=== PATIENT | female | born 1995 | race American Indian/Alaskan Native ===

== ENCOUNTER 2016-09-28 09:00 | Inpatient (IN) | payer MEDICAID ==
[2016-09-28] MEDS ORDERED: POLYCILLIN/NS 2 GM/100 ML 2 GM/100 ML BAG IV ONE ×2 (09:36→14:12)
[2016-09-28] MEDS ORDERED: MINERAL OIL PO PRN (09:36)
[2016-09-28] MEDS ORDERED: BRETHINE IVP PRN (09:36)
[2016-09-28] MEDS ORDERED: SUBLIMAZE IV PRN (09:36)
[2016-09-28] MEDS ORDERED: BRETHINE SUB-Q PRN (09:36)
[2016-09-28] MEDS ORDERED: STADOL IV PRN (09:36)
[2016-09-28] MEDS ORDERED: XYLOCAINE 2% INFILTRATI ONE (09:36)
[2016-09-28] MEDS ORDERED: ePHEDrine SULFATE IV PRN (09:36)
--- NOTE | 2016-09-28 09:40 | History and Physical Report ---
History of Present Illness Date of examination: 09/28/16 Date of admission: 09/28/16 09:00 History of present illness: 21 yo LMP EDC 09/26/16@ 40.2 weeks presented for second initiation of induction of labor. First trimester entry into care at 10 weeks gestation. course complicated by morbid obesity with BMI of 42, early GCt 117, NL second trimester screen of 125. 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 She experienced hypotensive epidsodes with spont resolution. Limited anatomy scan with [facility] referral and comang't of care secondary to maternal obesity. She is GBS positive. [facility] recommenced induction of labor 38-39 weeks, however she had an unfavorable cervix and after 3 days of induction and progression only to 2 cm, patient left hospital AMA. She was seen in office the following day and discussed in detail plan of care to reattempt induction closer to [facility]. 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, herpes Family/Genetic History: none Social history: no significant social history, single - Obstetrical History Expected Date of Delivery: 09/26/16 Actual Gestation: 40 Week(s) 2 Day(s) : 2 Para: 0 Hx # Term Pregnancies: 0 Number of Pregnancies: 0 Spontaneous Abortions: 1 Induced : 0 Number of Living Children: 0 Medications and Allergies Allergies Allergy/AdvReac Type Severity Reaction Status Date / Time peanut AdvReac Itching Verified 02/19/16 10:58 walnut AdvReac Itching Verified 02/19/16 10:58 Home Medications Medication Instructions Recorded Confirmed Last Taken Type Vit No.130/Iron/FA 1 each PO QDAY #30 tablet 01/31/16 09/16/16 Unknown Rx [ Tablet] Acetaminophen [Tylenol] 1,000 mg PO Q8HR #30 tablet 02/04/16 09/16/16 Unknown Rx Review of Systems All systems: negative Gastrointestinal: abdominal pain Genitourinary: contractions, no vaginal bleeding, no vaginal discharge, no leakage of fluid, no genital sores - Physical Exam Breasts: Positive: deferred Lungs: Positive: Normal air movement Abdomen: Positive: normal appearance Genitourinary (Female): Positive: normal external genitalia, normal perenium. Negative: perineal/vulvar lesions Vagina: Positive: normal moisture, other Cervix: Positive: other (folliculitis with multiple lesions on mons pubis) Extremities: Positive: normal - Obstetrical FHR: category 1 Uterine Contraction Monitor Mode: External Cervical Dilatation: 2.5 Cervical Effacement Percentage: 50 station: -3 Uterine Contraction Frequency (min): 0 Uterine Contraction Pattern: Absent Uterine Tone Measurement Phase: Resting Uterine Contraction Intensity: Strong/Firm Results Result Diagrams: 09/28/16 09:36 All other labs normal. Assessment and Plan A: IUP at 40.2 weeks gestation Category 2 tracing BPP 8/8 +GBS P: Abx for GBS AROM-clear Pitocin induction
[2016-09-28] MEDS ORDERED: PITOCin/NS 30 UNIT/500ML 30 UNITS/500 ML BAG IV SCH (10:00)
[2016-09-28] MEDS ORDERED: PITOCin/NS 20 UNIT/1000ML DRIP 20 UNITS/1,000 ML BAG IV SCH ×2 (10:00→18:00)
[2016-09-28 12:42] LABS: Hematocrit 41.5 % (30.3-42.9); Hemoglobin 13.4 gm/dl (10.1-14.3); Mean Corpuscular HGB Conc 32 % (30-34); Mean Corpuscular Hemoglobin 28 pg (28-32); Mean Corpuscular Volume 87 fl (79-97); Platelet Count 153 K/mm3 (140-440); Red Blood Count 4.79 M/mm3 (3.65-5.03); Red Cell Distribution Width 16.1 % (13.2-15.2); White Blood Count 13.1 K/mm3 (4.5-11.0)
[2016-09-28] MEDS ORDERED: POLYCILLIN/NS 1 GM/50 ML 1 GM/50 ML BAG IV SCH (13:39)
--- NOTE | 2016-09-28 14:27 | Progress Note ---
Assessment and Plan O: BPP 09/26 A: IUP @ 40.2 weeks gestation Induction of labor Category 2 tracing with reassuring BPP +GBS P: Active Shailesh't Induction GBS treatment AROM-clear fluid Subjective - Subjective Date of service: 09/28/16 Interval history: 21 yo LMP EDC 09/26/16@ 40.2weeks presented for second initiation of induction of labor. First trimester entry into care at 10 weeks gestation. course complicated by morbid obesity with BMI of 42, early GCt 117, NL second trimester screen of 125. 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 She experienced hypotensive epidsodes with spont resolution. Limited anatomy scan with [facility] referral and comang't of care secondary to maternal obesity. She is GBS positive. [facility] recommenced induction of labor 38-39 weeks, however she had an unfavorable cervix and after 3 days of induction and progression only to 2 cm, patient left hospital AMA. She was seen in office the following day and discussed in detail plan of care to reattempt induction closer to [facility]. Patient reports: movement normal, no new complaints, no vaginal bleeding, no contractions Objective - Vital Signs Vital Signs: Vital Signs - 12hr 09/28/16 09/28/16 09/28/16 10:32 10:47 11:02 Pulse Rate 90 90 90 Blood Pressure 142/81 127/67 129/81 09/28/16 09/28/16 09/28/16 11:17 11:33 11:47 Pulse Rate 85 94 H 102 H Blood Pressure 116/63 127/77 139/90 09/28/16 09/28/16 12:02 12:17 Pulse Rate 91 H 94 H Blood Pressure 142/88 - Exam Breasts: deferred Abdomen: Present: normal appearance FHR: category 2 Uterine Contraction Monitor Mode: External Cervical Dilatation: 2.5 Cervical Effacement Percentage: 40 station: -2 Uterine Contraction Frequency (min): 0 Uterine Contraction Pattern: Absent Uterine Tone Measurement Phase: Resting - Labs Labs: Abnormal Labs 09/28/16 09:36 WBC 13.1 H RDW 16.1 H Laboratory Results - last 24 hr 09/28/16 09/28/16 09:36 12:17 WBC 13.1 H RBC 4.79 Hgb 13.4 Hct 41.5 MCV 87 MCH 28 MCHC 32 RDW 16.1 H Plt Count 153 Blood Type B POSITIVE Antibody Screen Negative
[2016-09-28] MEDS: LACTATED RINGERS 1,000 ML IV SCH ×3 (14:29→19:10)
--- NOTE | 2016-09-28 14:38 | Ultrasound Report ---
LIMITED OB ULTRASOUND: Gestation: Dalal Position: Cephalic MONALISA = 10.5 cm Heart Rate: 135 BPM Estimated gestational age 40 weeks 2 days.
--- NOTE | 2016-09-28 14:40 | Ultrasound Report ---
BIOPHYSICAL PROFILE: 2 - breathing movements 2 - movements 2 - posture and tone 2 - Qualitative amniotic fluid volume 8 - TOTAL SCORE OF POSSIBLE 8 Heart Rate (bpm) 141 Estimated age 40 weeks 2 days.
[2016-09-28] MEDS: PITOCin/NS 30 UNIT/500ML 30 UNITS/500 ML BAG IV SCH ×4 (15:09→16:57)
--- NOTE | 2016-09-28 17:29 | Procedure Note ---
OB Delivery Note - Delivery Date of Delivery: 09/28/16 (7-7oz male @ 1606) Surgeon: RAÚL GARCIA Estimated blood loss: 500cc - Vaginal Delivery presentation: vertex Delivery position: OA Intrapartum events: none Delivery augmentation: rupture of membranes, pitocin Delivery monitor: external FHT, external uterine Route of delivery: Delivery placenta: spontaneous Delivery cord: 3 umbilical vessels Delivery laceration: 1st degree (vaginal laceration) Delivery repair: vicryl (3.[address]) Anesthesia: epidural - Infant A at 1 minute: 8 at 5 minutes: 9 Infant Gender: Male (Pushed for of viable male infant. Bulb suctioned and placed skin to skin. Spont. placenta. Fundus messaged firm, bleeding heavy, Pitocin infusing. Repair of first degree laceration. Bleeding continued, fundus messaged. Bimanuel exam done and multiple clots expressed. Bleeding scant. Positive GBs with adequate treatment.)
[2016-09-28] MEDS ORDERED: BICITRA PO ONE (17:45)
[2016-09-28] MEDS ORDERED: REGLAN IV ONE (17:45)
[2016-09-28] MEDS ORDERED: PEPCID IV ONE (17:45)
--- NOTE | 2016-09-28 17:51 | Progress Note ---
<RAÚL GARCIA - Last Filed: 09/28/16 17:52> Assessment and Plan A: IUP at 40.2 weeks gestation +GBS Category 2 tracing, rep late decels with minimal variability Remote from delivery P: at Recheck no cervical change Patient consulted and consented for C/S Subjective - Subjective Date of service: 09/28/16 Interval history: 21 yo LMP EDC 09/26/16@ 40.2 weeks presented for second initiation of induction of labor. First trimester entry into care at 10 weeks gestation. course complicated by morbid obesity with BMI of 42, early GCt 117, NL second trimester screen of 125. 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 She experienced hypotensive epidsodes with spont resolution. Limited anatomy scan with [facility] referral and comang't of care secondary to maternal obesity. She is GBS positive. [facility] recommenced induction of labor 38-39 weeks, however she had an unfavorable cervix and after 3 days of induction and progression only to 2 cm, patient left hospital AMA. She was seen in office the following day and discussed in detail plan of care to reattempt induction closer to [facility]. Patient reports: loss of fluid (clear), movement normal, contractions, no new complaints, no vaginal bleeding Objective - Vital Signs Vital Signs: Vital Signs - 12hr 09/28/16 09/28/16 09/28/16 10:32 10:47 11:02 Temperature Pulse Rate 90 90 90 Respiratory Rate Blood Pressure 142/81 127/67 129/81 09/28/16 09/28/16 09/28/16 11:17 11:33 11:47 Temperature Pulse Rate 85 94 H 102 H Respiratory Rate Blood Pressure 116/63 127/77 139/90 09/28/16 09/28/16 09/28/16 12:02 12:17 14:22 Temperature 98.5 F Pulse Rate 91 H 94 H 85 Respiratory 16 Rate Blood Pressure 142/88 131/74 - Exam Breasts: deferred Abdomen: Present: normal appearance FHR: category 2 FHR comments: Rep. late decels Uterine Contraction Monitor Mode: External Cervical Dilatation: 2.5 Cervical Effacement Percentage: 50 station: -3 Uterine Contraction Frequency (min): 2-4 Uterine Contraction Duration: 50 Uterine Contraction Pattern: Regular Uterine Tone Measurement Phase: Resting Uterine Contraction Intensity: Moderate - Labs Labs: Abnormal Labs 09/28/16 09:36 WBC 13.1 H RDW 16.1 H Laboratory Results - last 24 hr 09/28/16 09/28/16 09:36 12:17 WBC 13.1 H RBC 4.79 Hgb 13.4 Hct 41.5 MCV 87 MCH 28 MCHC 32 RDW 16.1 H Plt Count 153 Blood Type B POSITIVE Antibody Screen Negative <NARENDRA LIMON - Last Filed: 09/28/16 17:56> Objective - Vital Signs Vital Signs: Vital Signs - 12hr 09/28/16 09/28/16 09/28/16 10:32 10:47 11:02 Temperature Pulse Rate 90 90 90 Respiratory Rate Blood Pressure 142/81 127/67 129/81 09/28/16 09/28/16 09/28/16 11:17 11:33 11:47 Temperature Pulse Rate 85 94 H 102 H Respiratory Rate Blood Pressure 116/63 127/77 139/90 09/28/16 09/28/16 09/28/16 12:02 12:17 14:22 Temperature 98.5 F Pulse Rate 91 H 94 H 85 Respiratory 16 Rate Blood Pressure 142/88 131/74 - Labs Labs: Abnormal Labs 09/28/16 09:36 WBC 13.1 H RDW 16.1 H Laboratory Results - last 24 hr 09/28/16 09/28/16 09:36 12:17 WBC 13.1 H RBC 4.79 Hgb 13.4 Hct 41.5 MCV 87 MCH 28 MCHC 32 RDW 16.1 H Plt Count 153 Blood Type B POSITIVE Antibody Screen Negative
[2016-09-28] MEDS ORDERED: LACTATED RINGERS 1,000 ML IV SCH (18:00)
[2016-09-28] MEDS ORDERED: ANCEF/STERILE WATER 2 GM/20 ML 2 GM/20 ML SYRINGE IV ONE (20:52)
[2016-09-28] MEDS ORDERED: TORADOL ONE (20:54)
[2016-09-28] MEDS ORDERED: NEO SYNEPHRINE ONE (20:57)
--- NOTE | 2016-09-28 21:59 | Operative Report ---
Operative Report Operative Report: Date of procedure: September 28, 2016 Preoperative diagnosis: 1) IUP at 40w2d 2) Nonreassuring heart tones 3) Intolerance to Labor 4) Morbid Obesity Postoperative diagnosis: Same Procedure: Primary low transverse section Surgeon: Merry Corrales M.D. Customer Support Agent: Dominique Angela M.D. Anesthesia: Spinal-epidural Findings: 1) Viable male , Apgars 8 and 9, weight 3021g, (6 lb 10.5 oz). Occiput posterior. 2) Normal-appearing uterus ovaries and tubes Estimated blood loss: 800 mL Drains: Brito to gravity Complications:None. Counts correct x 3. Disposition: Stable to PACU Indication for procedure: Pt is a 21 year old -Luxembourger female at 40 weeks 2 days who initially presented for induction of labor secondary to morbid obesity. The patient progressed to 2 cm dilated and the heart tracing began have repetitive late decels remote from delivery. The decision was made to proceed with primary section. Operation in detail: After the risks, benefits, alternatives and complications were explained to the patient she gave informed consent for the procedure. She was subsequently taken to the operating room where spinal-epidural anesthesia was noted to be adequate. She was subsequently placed in the dorsal supine position with leftward tilt and prepped and draped in a normal sterile fashion. heart tones were noted to be in the 115s prior to incision. A timeout was performed. A Pfannenstiel skin incision was made with the knife and carried down to the layer of the fascia with the Bovie. The fascia was incised in the midline and the fascial incision was extended bilaterally with the Bovie. Attention was then turned to the superior aspect of the incision which was grasped with two Kochers, tented up, and dissected off the rectus muscles. Attention was then turned to the inferior aspect of the incision which was grasped with two Kochers , tented up and dissected off the rectus muscles. The rectus muscles were then in the midline. The peritoneum was then entered bluntly. The peritoneal incision was extended with good visualization of the bladder. The peritoneal incision was then stretched. An Khris self-retaining retractor was placed for visualization. The bladder blade was placed. The vesicouterine peritoneum was grasped with smooth pickups and incised with Metzenbaum scissors. Metzenbaum scissors were used to extend the incision bilaterally. The bladder flap was then created digitally and the bladder blade was replaced. A transverse incision was made in the lower uterine segment with a knife and extended bilaterally with the bandage scissors. The head was delivered without difficulty followed by shoulders and body. was bulb suctioned at delivery. The cord was clamped and cut and the was handed to NICU staff in attendance. Cord blood was collected. The placenta was then delivered manually. The uterus was exteriorized and then cleared of all clots and debris. The hysterotomy was then reapproximated with 0 Vicryl in a running locked fashion. A second layer of the same suture was used in imbricating fashion. A figure of eight of 2-0 Vicryl was used on the left side of the incision to obtain hemostasis. The hysterotomy was inspected and hemostasis was noted. The Khris self-retaining retractor was removed. The gutters were irrigated and cleared of all clots and debris. The hysterotomy was again inspected and noted to be hemostatic. Surgicel was placed over the hysterotomy. Interceed was placed on the anterior surface of the uterus. The peritoneum was then reapproximated with 2-0 Vicryl in a running fashion. The rectus muscles were then covered with Surgicel. The fascia was reapproximated with 0 Vicryl in a running fashion. The skin was reapproximated with eulogio. The incision was then covered with telfa and a pressure dressing. The procedure was then ended. The patient tolerated the procedure well and was taken to the PACU in stable condition. All instrument, lap, and needle counts were correct 3.
--- NOTE | 2016-09-28 21:59 | Procedure Note ---
OB Delivery Note - Delivery Date of Delivery: 09/28/16 Surgeon: NARENDRA LIMON Estimated blood loss: other (800 mL) - Section Preop diagnosis: nonreassuring FHR tracing Postop diagnosis: same section procedure: section, primary low transverse Disposition: PACU Complications: uterine atony Narrative: Please see operative note. - A at 1 minute: 8 at 5 minutes: 9 Gender: Male (3021g (6lb 10.5 oz))
[2016-09-28] MEDS ORDERED: DILAUDID IV PRN ×2 (22:07)
[2016-09-28] MEDS ORDERED: ZOFRAN IV PRN (22:07)
[2016-09-28] MEDS ORDERED: PHENERGAN PO PRN (22:07)
[2016-09-28] MEDS ORDERED: PHENERGAN PR PRN (22:07)
[2016-09-28] MEDS ORDERED: NARCAN 0.4 MG/1 ML IV PRN (22:07)
--- NOTE | 2016-09-28 22:07 | Post Anesthesia Evaluation ---
- Post Anesthesia Evaluation Patient Participated: Yes Airway Patent: Yes Stable Respiratory Function: Yes Nausea/Vomiting: No Temp > 96.8F: Yes Pain Manageable: Yes Adequeate Hydration: Yes Anesthesia Complications: No
--- NOTE | 2016-09-28 22:07 | Anesthesia Consultation ---
Anesthesia Consult and Med Hx Date of service: 09/28/16 - Airway Anesthetic Teeth Evaluation: Good ROM Head & Neck: Adequate Mental/Hyoid Distance: Adequate Mallampati Class: Class II Intubation Access Assessment: Good - Pulmonary Exam CTA: Yes - Cardiac Exam Cardiac Exam: No Murmur - Pre-Operative Health Status ASA Pre-Surgery Classification: ASA2 Proposed Anesthetic Plan: Spinal - Pulmonary Hx Asthma: No COPD: No Hx Pneumonia: No - Cardiovascular System Hx Hypertension: No - Central Nervous System Hx Seizures: No Hx Psychiatric Problems: No - Endocrine Hx Renal Disease: No Hx End Stage Renal Disease: No Hx Hypothyroidism: No Hx Hyperthyroidism: No - Hematic Hx Anemia: No Hx Sickle Cell Disease: No - Other Systems Hx Alcohol Use: No
[2016-09-28] MEDS ORDERED: SODIUM CHLORIDE FLUSH SYRINGE 10 ML IV PRN (23:00)
[2016-09-28] MEDS ORDERED: fentaNYL-BUPIV 2 MCG/ML-0.125% 200 MCG/100 ML BAG EPIDURAL SCH (23:00)
[2016-09-29] MEDS ORDERED: TUCKS PAD TP PRN (00:44)
[2016-09-29] MEDS ORDERED: NARCAN 0.4 MG/1 ML IV PRN (00:44)
[2016-09-29] MEDS ORDERED: PITOCin/NS 20 UNIT/1000ML DRIP 20 UNITS/1,000 ML BAG IV SCH (00:44)
[2016-09-29] MEDS ORDERED: SODIUM CHLORIDE FLUSH SYRINGE 10 ML IV PRN (00:44)
[2016-09-29] MEDS ORDERED: MORPHINE IV PRN ×2 (00:44)
[2016-09-29] MEDS ORDERED: LANSINOH TP PRN (00:44)
[2016-09-29] MEDS ORDERED: MYLICON PO PRN (00:44)
[2016-09-29] MEDS ORDERED: TORADOL IV PRN (00:44)
[2016-09-29] MEDS ORDERED: D5LR 1,000 ML IV SCH (00:44)
[2016-09-29] MEDS: MILK OF MAGNESIA PO SCH ×2 (00:53→19:00)
[2016-09-29] MEDS ORDERED: BENADRYL IV PRN (00:54)
[2016-09-29] MEDS: ANCEF/NS 1 GM/50 ML 1 GM/50 ML BAG IV SCH ×2 (04:35→12:21)
--- NOTE | 2016-09-29 11:04 | Progress Note ---
Assessment and Plan A: POD#1 s/p primary section, nausea P: Routine postop care. Hold diet at clears. Follow up postop H/H Subjective - Subjective Date of service: 09/29/16 Principal diagnosis: s/p primary section Interval history: Pt is nauseated but no emesis since last night. She is itching as well. Patient reports: pain well controlled, nauseated, no voiding normally, no flatus , no bowel movement, no ambulating normally : doing well Objective - Vital Signs Latest vital signs: Vital Signs Temp Pulse Resp BP 09/29/16 08:10 98.2 F 80 18 138/78 09/29/16 05:10 97.0 F L 67 18 127/73 09/28/16 23:55 96.8 F L 80 18 116/68 09/28/16 22:35 61 20 112/60 09/28/16 22:21 62 20 121/61 09/28/16 21:55 85 20 120/56 09/28/16 21:52 98.0 F 95 H 20 09/28/16 14:22 98.5 F 85 16 131/74 09/28/16 12:17 94 H 09/28/16 12:02 91 H 142/88 09/28/16 11:47 102 H 139/90 09/28/16 11:33 94 H 127/77 09/28/16 11:17 85 116/63 09/28/16 11:02 90 129/81 Intake and Output 09/28/16 09/29/16 09/29/16 22:59 06:59 14:59 Intake Total 2000 180 240 Output Total 400 800 Balance 1600 -620 240 Intake: IV 2000 Lactated Ringers 1,000 ml 2000 @ 125 mls/hr IV DIRECT TRACY Rx#:[id number] Oral 240 Intake, Free Water 180 Output: Urine 400 800 Indwelling Catheter 800 Void 400 Other: Total, Intake Amount 240 Total, Output Amount 400 600 # Voids Void 1 Estimated Blood Loss 800 - Exam Breasts: Present: deferred Cardiovascular: Present: Regular rate Lungs: Present: Clear to auscultation Abdomen: Present: soft (obese ) Uterus: Present: fundal height at umbilicus Extremities: Present: normal Incision: Present: dressed - Labs Labs: Abnormal lab results 09/28/16 Range/Units 09:36 WBC 13.1 H (4.5-11.0) K/mm3 RDW 16.1 H (13.2-15.2) %
--- NOTE | 2016-09-29 11:17 | Progress Note ---
Subjective Date of service: 09/28/16 Principal diagnosis: s/p primary section Interval history: Patient states she has not ambulated yet. No residual weakness and can move legs with ease. Denies back pain. Complains of itching. Dr. Merry Corrales notified and benadryl ordered. Objective - Constitutional Vitals: Vital Signs - 12hr 09/28/16 09/29/16 09/29/16 23:55 05:10 08:10 Temperature 96.8 F L 97.0 F L 98.2 F Pulse Rate 80 67 80 Respiratory 18 18 18 Rate Blood Pressure 116/68 127/73 138/78 - Labs CBC & Chem 7: 09/28/16 09:36 Labs: Abnormal lab results 09/28/16 Range/Units 09:36 WBC 13.1 H (4.5-11.0) K/mm3 RDW 16.1 H (13.2-15.2) %
[2016-09-29 11:24] LABS: Hematocrit 35.9 % (30.3-42.9); Hemoglobin 11.5 gm/dl (10.1-14.3)
[2016-09-29] MEDS: FEOSOL PO SCH (11:27)
[2016-09-29] MEDS: PRENATAL VITAMIN PO SCH (11:27)
[2016-09-29] MEDS ORDERED: BENADRYL PO PRN (11:30)
[2016-09-29] MEDS: PERCOCET 5/325 PO PRN (21:59)
[2016-09-29] MEDS ORDERED: M-M-R II VACCINE SUB-Q ONE (22:21)
[2016-09-30] MEDS: MOTRIN PO PRN ×4 (00:17→17:44)
[2016-09-30] MEDS: MILK OF MAGNESIA PO SCH ×3 (01:32→19:34)
[2016-09-30] MEDS ORDERED: BOOSTRIX IM ONE (06:00)
[2016-09-30] MEDS: PRENATAL VITAMIN PO SCH (10:25)
[2016-09-30] MEDS: FEOSOL PO SCH (10:25)
--- NOTE | 2016-09-30 15:44 | Progress Note ---
Assessment and Plan A/P POD#2 s/p c/sec ambulating well + flatus bleeding decreased B+ no rhogam indicated male ( call for circumcision f/u in 10 days for staple removal Subjective - Subjective Date of service: 09/30/16 Principal diagnosis: s/p primary section Patient reports: appetite normal, voiding normally, pain well controlled, flatus , ambulating normally [place]: doing well Objective - Vital Signs Latest vital signs: Vital Signs Temp Pulse Resp BP 09/30/16 08:43 97.5 F L 109 H 20 123/70 09/30/16 00:30 98.5 F 103 H 20 118/61 09/30/16 00:17 18 09/29/16 22:10 99.2 F 121 H 20 115/73 09/29/16 21:59 18 09/29/16 16:10 99.1 F 100 H 19 130/89 Intake and Output 09/30/16 09/30/16 09/30/16 06:59 14:59 22:59 Intake Total 480 600 Output Total 800 Balance -320 600 Intake: Oral 600 Intake, Free Water 480 Output: Urine 800 Void 800 Other: Total, Intake Amount 480 Total, Output Amount 800 # Voids Void 2 1 - Exam Breasts: Present: normal Cardiovascular: Present: Regular rate, Normal S1 Lungs: Present: Clear to auscultation, Normal air movement Abdomen: Present: normal appearance, soft. Absent: distention, tenderness, guarding Uterus: Present: normal, firm, fundal height below umbilicus. Absent: bogginess , tenderness Extremities: Present: normal. Absent: tenderness Incision: Present: normal, dry, intact (eulogio present )
--- NOTE | 2016-09-30 15:47 | Discharge Summary ---
Providers - Providers Date of Admission: 09/28/16 09:00 Date of discharge: 10/01/16 Attending physician: NARENDRA LIMON 09/29/16 00:44 Consult to Flour Inspector [CONS] Routine Reason For Exam: Primary care physician: RN OBGYN Hospitalization Reason for admission: induction of labor Delivery: Procedure: section Episiotomy: none Laceration: none Incision: normal, dry, intact, dressed (eulogio present ) Other procedures: none complications: none Discharge diagnosis: IUP at term delivered [place] baby: male Condition at discharge: Good Disposition: DC-01 TO HOME OR SELFCARE Plan - Discharge Medications Prescriptions: Ferrous Sulfate [Feosol 325 MG tab] 325 mg PO BID #60 tablet Ibuprofen [Motrin] 800 mg PO Q8HR PRN #30 tablet PRN Reason: Pain oxyCODONE /ACETAMINOPHEN [Percocet 5/325] 1 tab PO Q6HR PRN #30 tablet PRN Reason: Pain - Provider Discharge Summary Activity: routine, no sex for 6 weeks Diet: routine Instructions: routine Additional instructions: [] Smoking cessation referral if applicable(refer to patient education folder for contact #) [] Refer to [facility]'s [facility] Booklet Call your doctor immediately for: * Fever > 100.5 * Heavy vaginal bleeding ( >1 pad per hour) * Severe persistent headache * Shortness of breath * Reddened, hot, painful area to leg or breast * Drainage or odor from incision. * Keep incision clean and dry at all times and follow doctor's instructions regarding bathing/showering - Follow up plan Follow up: PRIMARY CARE, [Primary Care Provider] - 10 Days Forms: [facility] Discharge Summary, Discharge Signature Page
[2016-09-30] MEDS: PERCOCET 5/325 PO PRN (21:51)
[2016-10-01] MEDS: MOTRIN PO PRN ×2 (00:18→05:50)
[2016-10-01] MEDS: MILK OF MAGNESIA PO SCH ×2 (01:57→05:52)
[2016-10-01 09:18] VITALS: BP 103/54
[2016-10-01] MEDS: FEOSOL PO SCH (10:21)
[2016-10-01] MEDS: PRENATAL VITAMIN PO SCH (10:21)
== END 2016-10-01 14:57 | disposition home or self-care (01) | DRG 765 ==
LOC: LD 09:00 → OB 23:53
PROVIDERS: ADMIT Obstetrics & Gynecology; ATTEND Obstetrics & Gynecology
PROC: 10907ZC Drainage of Amniotic Fluid, Therapeutic from Products of Conception, Via Natural or Artificial Opening (ICD-10-PCS; principal; 2016-09-28)
PROC: 3E033VJ Introduction of Other Hormone into Peripheral Vein, Percutaneous Approach (ICD-10-PCS; principal; 2016-09-28)
PROC: 10D00Z1 Extraction of Products of Conception, Low, Open Approach (ICD-10-PCS; principal; 2016-09-28)
DX: O76 Abnormality in fetal heart rate and rhythm complicating labor and delivery (principal); Z68.43 Body mass index [BMI] 50.0-59.9, adult; Z3A.40 40 weeks gestation of pregnancy; Z37.0 Single live birth; O99.214 Obesity complicating childbirth; E66.01 Morbid (severe) obesity due to excess calories; O99.824 Streptococcus B carrier state complicating childbirth; Z91.010 Allergy to peanuts; Z91.018 Allergy to other foods
CPT/HCPCS: 36415; 76815; 76819; 85014; 85018; 85027; 86592; 86850; 86900; 86901; C1765; J0290; J0595; J0690; J1170; J1200; J1885; J2370; J2405; J2590; J2765; J7120; J7121

== ENCOUNTER 2016-11-10 21:38 | Emergency (ER) | payer MEDICAID ==
[2016-11-10 22:29] LABS: Basophils % (Auto) 0.6 % (0.0-1.8); Eosinophils % (Auto) 3.6 % (0.0-4.3); Hemoglobin 12.4 gm/dl (10.1-14.3); Mean Corpuscular HGB Conc 32 % (30-34); Mean Corpuscular Hemoglobin 28 pg (28-32); Mean Corpuscular Volume 87 fl (79-97); Platelet Count 227 K/mm3 (140-440); Red Blood Count 4.51 M/mm3 (3.65-5.03); Red Cell Distribution Width 15.5 % (13.2-15.2); White Blood Count 8.7 K/mm3 (4.5-11.0)
[2016-11-10 22:37] LABS: Alanine Aminotransferase 17 units/L (7-56); Albumin 4.2 g/dL (3.9-5); Albumin/Globulin Ratio 1.4 %; Alkaline Phosphatase 71 units/L (35-129); Anion Gap 18 mmol/L; BUN/Creatinine Ratio 11.42; Blood Urea Nitrogen 8 mg/dL (7-17); Calcium 9.1 mg/dL (8.4-10.2); Carbon Dioxide 23 mmol/L (22-30); Chloride 104.9 mmol/L (98-107); Glucose 96 mg/dL (65-100); Lipase 43 units/L (13-60); Potassium 3.5 mmol/L (3.6-5.0); Sodium 142 mmol/L (137-145); Total Protein 7.2 g/dL (6.3-8.2)
[2016-11-10 22:38] LABS: Bilirubin,Urine NEG (Negative); Blood,Urine NEG (Negative); Ketones,Urine NEG (Negative); Leukocyte Esterase,Urine SM (Negative); Mucus,Urine FEW /HPF; Nitrite,Urine NEG (Negative)
[2016-11-11] MEDS ORDERED: TORADOL IV ONE (12:14)
--- NOTE | 2016-11-11 12:25 | Emergency Department Report ---
HPI - General Chief Complaint: Abdominal Pain Time Seen by Provider: 11/11/16 11:02 - HPI HPI: The patient is a 21-year-old female who presents for evaluation of abdominal pain. The patient reports bilateral lower quadrant abdominal pain, and left lower back pain, present for the past 6 weeks since receiving a . She states that her pain is 7/10 in severity, aching in quality, exacerbated with movement, and constant for the past 6 weeks. The patient denies fever, chills, night sweats, nausea, vomiting, diarrhea, blood in the stool, dark tarry stool, dysuria, hematuria, flank pain, vaginal discharge, inability to pass flatus. ED Past Medical Hx - Past Medical History Hx Hypertension: No Hx Congestive Heart Failure: No Hx Diabetes: No Hx Deep Vein Thrombosis: No Hx Renal Disease: No Hx Sickle Cell Disease: No Hx Seizures: No Hx Asthma: No Hx COPD: No Hx HIV: No - Surgical History Additional Surgical History: Tonsillectomy and tubes placed in ears as a child - Social History Smoking Status: Never Smoker Substance Use Type: None - Medications Home Medications: Home Medications Medication Instructions Recorded Confirmed Last Taken Type Ibuprofen [Motrin] 800 mg PO Q8HR PRN #30 tablet 09/29/16 11/11/16 Unknown Rx HYDROcodone/APAP 7.5-325 [[place] 1 each PO Q8HR PRN #15 tablet 11/11/16 Unknown Rx 7.5-325 mg TAB] Ibuprofen [Motrin] 800 mg PO Q8HR PRN #15 tablet 11/11/16 Unknown Rx Ondansetron [Zofran TAB] 4 mg PO Q8HR PRN #15 tablet 11/11/16 Unknown Rx ED Review of Systems ROS: Stated complaint: ABD PAIN Other details as noted in HPI Constitutional: denies: fever ENT: denies: throat or neck pain Respiratory: denies: cough, shortness of breath Cardiovascular: denies: chest pain Endocrine: denies unexplained weight loss or gain Gastrointestinal: reports abdominal pain, nausea Genitourinary: denies: dysuria Musculoskeletal: denies: leg swelling Skin: denies: rash Neurological: denies: headache Hematological/Lymphatic: denies: easy bleeding or easy bruising Psych: denies sadness or hopelessness Physical Exam - Physical Exam Vital Signs: Vital Signs 11/10/16 11/10/16 11/11/16 21:45 21:46 02:14 Temperature 98.2 F 98.2 F 98.0 F Pulse Rate 101 H 99 H 87 Respiratory 18 18 18 Rate Blood Pressure 143/90 143/90 133/90 Blood Pressure [Left] O2 Sat by Pulse 98 97 98 Oximetry 11/11/16 11/11/16 11/11/16 05:44 10:07 10:09 Temperature 97.4 F L Pulse Rate 73 88 79 Respiratory 18 17 Rate Blood Pressure 134/91 Blood Pressure 137/89 [Left] O2 Sat by Pulse 99 96 97 Oximetry Physical Exam: General: well-nourished, well-developed, no acute distress Head: Normocephalic, atraumatic Eyes: normal sclera ENT: Mucous membranes are pink and moist Neck: trachea midline, neck supple, No neck stiffness, no cervical adenopathy Respiratory: Breath sounds equal bilaterally, no wheezing, rales, or rhonchi Cardio: S1 and S2 present, no murmurs, rubs, gallops, capillary refill is brisk Abdomen: Normoactive bowel sounds, soft abdomen, left lower quadrant and periumbilical tenderness to palpation present, no rigidity, no guarding or rebound tenderness Chest WALL/Back: No tenderness to palpation of the chest wall, no CVA tenderness with percussion, left lower thoracic paraspinal tenderness to palpation present Musc: No pitting edema Skin: No rash Neuro: no facial drooping, normal speech Psych: Normal affect ED Course Vital Signs 11/10/16 11/10/16 11/11/16 21:45 21:46 02:14 Temperature 98.2 F 98.2 F 98.0 F Pulse Rate 101 H 99 H 87 Respiratory 18 18 18 Rate Blood Pressure 143/90 143/90 133/90 Blood Pressure [Left] O2 Sat by Pulse 98 97 98 Oximetry 11/11/16 11/11/16 11/11/16 05:44 10:07 10:09 Temperature 97.4 F L Pulse Rate 73 88 79 Respiratory 18 17 Rate Blood Pressure 134/91 Blood Pressure 137/89 [Left] O2 Sat by Pulse 99 96 97 Oximetry ED Medical Decision Making - Lab Data Result diagrams: 11/10/16 22:00 11/10/16 22:00 - Medical Decision Making The patient was seen and examined by myself. The patient is placed on a quality assurance monitor and continuous pulse ox. On initial evaluation, the patient was found to be in no distress. Evaluation orders are placed. The patient is given an IV dose of Toradol for pain. Lab results were non-concerning including WBC, hemoglobin, hematocrit, electrolytes, renal function, LFTs, lipase, and urinalysis, and negative test. The patient was reevaluated and reported that their symptoms were markedly improved. As the patient is afebrile , with normal WBC, and nonacute abdomen on exam, the patient is stable for discharge with outpatient follow-up. The patient is given follow-up and return instructions. The patient expressed understanding and agreed with the plan. The patient is discharged in stable condition. Critical care attestation.: If time is entered above; I have spent that time in minutes in the direct care of this critically ill patient, excluding procedure time. ED Disposition Clinical Impression: Acute abdominal pain in left lower quadrant, Acute abdominal pain in right lower quadrant, Left flank pain Disposition: TO HOME OR SELFCARE Is pt being admited?: No Does the pt Need Aspirin: No Condition: Stable Instructions: Abdominal Pain (ED) Prescriptions: HYDROcodone/APAP 7.5-325 [[place] 7.5-325 mg TAB] 1 each PO Q8HR PRN #15 tablet PRN Reason: Pain Ibuprofen [Motrin] 800 mg PO Q8HR PRN #15 tablet PRN Reason: Pain Ondansetron [Zofran TAB] 4 mg PO Q8HR PRN #15 tablet PRN Reason: Nausea Referrals: PRIMARY CARE, [Primary Care Provider] - 3-5 Days FCO GARCIA MD [Staff Physician] - 3-5 Days Time of Disposition: 12:21
[2016-11-11 14:08] VITALS: BP 132/78
== END 2016-11-11 14:08 | disposition home or self-care (01) ==
LOC: ED 21:38
DX: R10.84 Generalized abdominal pain (principal)
CPT/HCPCS: 36415; 80053; 81001; 83690; 84703; 85025; 96374; 99284; J1885